=== PATIENT | female | born 1935 | race Caucasian/White ===

== ENCOUNTER 2025-03-27 09:38 | Outpatient (AMB) | payer MEDICARE, OTHER, SELFPAY ==
--- NOTE | 2025-03-27 09:43 | MHC.PC.OV ---
Vital Signs 03/27/25 09:50 Height 5 ft 3 in Weight 147 lb BMI 26.0 BP 112/70 Blood Pressure Location Rt brachial Position Sitting Respiration 18 Pulse 80 Pulse Source Pulse Oximeter Temp 97.6 F Temp Source Oral Pulse Oximetry (%) 99 Oxygen Delivery Method Room Air Intake Visit Reasons: New Patient visit ok per Dr. Barrientos Intake Note: Pt is here today for New patient visit. Allergies amoxicillin [AMOXICILLIN] Allergy (Unknown, Unverified 03/27/25 09:52) VOMITING DIARRHEA Sulfa (Sulfonamide Antibiotics) [SULFA (SULFONAMIDE ANTIBIOTICS)] Allergy (Unknown, Unverified 03/27/25 09:52) RASH Medication List - Last Reconciled 03/27/25 by Sejal Barrientos MD allopurinol 200 mg PO DAILY ammonium lactate 12% 1 appl topical BID lisinopril 10 mg PO DAILY metoprolol succinate ER 100 mg PO DAILY metronidazole 0.75% appl topical simvastatin 80 mg PO QPM Tobacco use date assessed: 03/27/25 Fall risk assessment: 1 Fall in past year Last assessed Fall Risk: 03/27/25 Dental Screening Dental Screen Date: 03/27/25 Did you have a dental visit in the last 12 months?: Yes Did you have a dental problem in the last 6 months where you did not have access to dental care?: No Was dental information given to patient?: Patient has dentist HPI New Patient visit ok per Dr. Barrientos HPI Details Patient presents for new patient visit. Past medical history includes hypertension hyperlipidemia. [place] [facility] [place] She lives in [place] [facility]. Patient reports having difficulty with the balance but has not been physically active. She uses walker or cane to ambulate. Patient denies any falls Patient denies any asymmetric weakness in her lower extremities. [facility] Medical History (Updated 03/27/25 @ 16:06 by Sejal Barrientos MD) HTN (hypertension) Hyperlipidemia Gout Surgical History (Updated 03/27/25 @ 09:56 by MEGA Grimm) No pertinent past surgical history Family History (Updated 03/27/25 @ 09:57 by MEGA Grimm) Father No problems noted. Mother No problems noted. Social History (Updated 03/27/25 @ 16:07 by Sejal Barrientos MD) Household Members Other:: lives in [facility], independent living, son and daughter, Housing: House Patient Tobacco Use Status: Former Tobacco user e-Cigarette/Vaping Use: Never Used service: No Current occupational status: retired Cognitive needs: No Hearing needs: No Vision needs: Yes Questionnaire PHQ-9 Over the last 2 weeks, how often have you been bothered by any of the following problems? 1. Little interest or pleasure in doing things: several days 2. Feeling down, depressed, or hopeless: not at all 3. Trouble falling or staying asleep, or sleeping too much: not at all 4. Feeling tired or having little energy: not at all 5. Poor appetite or overeating: not at all 6. Feeling bad about yourself - or that you are a failure or have let yourself or your family down: not at all 7. Trouble concentrating on things, such as reading the newspaper or watching television: not at all 8. Moving or speaking so slowly that other people could have noticed. Or the opposite - being so fidgety or restless that you have been moving around a lot more than usual: not at all 9. Thoughts that you would be better off or of hurting yourself in some way: not at all Total score: 1 Depression Screening Interpretation: Negative Depression Screening Done: Yes 60482 - PHQ-9 Billing: Yes Source: Developed by Drs. Edgardo Xie, Leela Tanner, Marlo Quintana and colleagues, with an educational jason from [employer]. Thrive Questionnaire Date Thrive assessed: 03/27/25 I am a: Patient What is your living situation today?: I have a steady place to live Within the past 12 months, did the food you bought not last and you didn't have the money to get more?: Never true Within the past 12 months, did you worry whether your food would run out before you got money to buy more?: Never true Do you have trouble paying for medicines?: No Do you have trouble getting transportation to medical appointments?: No Do you have trouble paying your heating and electricity bill?: No Do you have trouble taking care of your child, family member or friend?: No Do you have trouble with day-to-day activities such as bathing, preparing meals, shopping, managing finances, etc.?: No Are you currently unemployed and looking for a job?: No Are you interested in more education?: No Please select the resources that you would like help with: None Currently or been in a relationship where the following occur: No concerns reported THRIVE Score: 0 AUDIT C Alcohol Use Questionnaire (AUDIT-C) 1. How often do you have a drink containing alcohol?: 4 or more times a week 2. How many drinks containing alcohol do you have on a typical day when you are drinking?: 1 or 2 3. How often do you have six or more drinks on one occasion?: Never Total Score: 4 SANTOS-7 AMB Questionnaire SANTOS-7 Date SANTOS - 7 assessed: 03/27/25 Feeling nervous, anxious, or on edge: 0 = Not at all Not being able to stop or control worryin = Not at all Worrying too much about different things: 0 = Not at all Trouble relaxin = Not at all Being so restless that it is hard to sit still: 0 = Not at all Becoming easily annoyed or irritable: 0 = Not at all Feeling afraid as if something awful might happen: 0 = Not at all Total SANTOS-7 score (0-4 normal; 5-9 mild; 10-14 moderate; 15-21 severe): 0 Source: Developed by Drs. dEgardo Xie, Leela Tanner, Marlo Quintana and colleagues, with an educational jason from [employer]. SANTOS-7 Assessment Billing SANTOS-7 Assessment Tool: SANTOS-7 Assessment 71452 Review of Systems Const All systems reviewed & are unremarkable except as noted in HPI and below Reports no additional complaints Eyes Reports no additional complaints ENT Reports no additional complaints Card Reports no additional complaints Resp Reports no additional complaints GI Reports no additional complaints Reports no additional complaints Physical exam (Primary Care) Vital Signs: Last Vital Signs Temp 97.6 F 03/27/25 09:50 Pulse 80 03/27/25 09:50 Resp 18 03/27/25 09:50 BP 112/70 03/27/25 09:50 Pulse Ox 99 03/27/25 09:50 Oxygen Delivery Method Room Air 03/27/25 09:50 BMI result Body Mass Index 26.0 Tobacco/Smoking Status: Tobacco use Status Tobacco use date assessed 03/27/25 03/27/25 09:46 Patient Tobacco Use Status Former Tobacco user 03/27/25 10:17 e-Cigarette/Vaping Use Never Used 03/27/25 10:17 PHQ-9: PHQ-9 Score PHQ-9: Total score 1 03/27/25 10:20 Depression Screening Interpretation: Negative Thrive Assessment: Date of Thrive Assessment Date Thrive assessed 03/27/25 03/27/25 09:46 Currently or been in a relationship where the following occur: No concerns reported Const General: no acute distress HENMT Head: Yes normal to inspection Ears: hearing grossly normal bilaterally Face and sinus: Yes normal facial exam Throat: Yes posterior oropharynx normal Eyes General: appearance normal, both eyes and all related structures Neck Neck: Yes no lymphadenopathy and Yes supple Resp Effort & Inspection: normal respiratory effort Auscultation: clear to auscultation bilaterally Cardio Rhythm: regular rhythm Heart sounds: S1 normal heart sound present and S2 normal heart sound present GI Inspection: Yes normal to inspection Palpation (GI): Soft to palpation Percussion: Yes normal to percussion Auscultation: normal bowel sounds Neuro Other: lower Extremities strength 4/5 bilaterally Cranial nerves: Yes CN's II-XII intact bilaterally Gait exam (Neuro): Staggering gait present Motor exam (neuro): Pronator motor function not present Coordination: [id number]-nr-[id number] test normal Romberg Test: Negative Coding Level of Care Code New Pt Level 4 (15476) Diagnoses Gout M10.9 Hyperlipidemia E78.5 HTN (hypertension) I10 Lower extremity weakness R29.898 Poor balance R26.89 Additional Codes SANTOS-7 Assessment Billing - SANTOS-7 Assessment Tool: SANTOS-7 Assessment 39254 ([id number]) PHQ-9 - 87366 - PHQ-9 Billing: Yes ([id number]) Assessment & Plan Assessment & Plan (1) Gout: Code(s): M10.9 - Gout, unspecified Category: Medical Plan: Continue allopurinol check uric acid (2) Hyperlipidemia: Code(s): E78.5 - Hyperlipidemia, unspecified Category: Medical Plan: Continue statin (3) HTN (hypertension): Code(s): I10 - Essential (primary) hypertension Category: Medical Plan: Continue lisinopril and metoprolol. Patient will return for fasting blood work. (4) Lower extremity weakness: Code(s): R29.898 - Other symptoms and signs involving the musculoskeletal system Category: Medical Plan: Physical therapy was recommended but patient will start take part in gym activities in her community (5) Poor balance: Code(s): R26.89 - Other abnormalities of gait and mobility Category: Medical Plan: PT was recommended but patient will try classes to improve her balance, she will follow-up in 3 months Orders: Orders Complete Blood Count Auto Diff Today E53.8 - Deficiency of other specified B group vitamins, E55.9 - Vitamin D deficiency, unspecified, E78.5 - Hyperlipidemia, unspecified, I10 - Essential (primary) hypertension, M10.9 - Gout, unspecified Lipid Panel Today E53.8 - Deficiency of other specified B group vitamins, E55.9 - Vitamin D deficiency, unspecified, E78.5 - Hyperlipidemia, unspecified, I10 - Essential (primary) hypertension, M10.9 - Gout, unspecified Hemoglobin A1c Today E53.8 - Deficiency of other specified B group vitamins, E55.9 - Vitamin D deficiency, unspecified, E78.5 - Hyperlipidemia, unspecified, I10 - Essential (primary) hypertension, M10.9 - Gout, unspecified UA w Microscopic Today E53.8 - Deficiency of other specified B group vitamins, E55.9 - Vitamin D deficiency, unspecified, E78.5 - Hyperlipidemia, unspecified, I10 - Essential (primary) hypertension, M10.9 - Gout, unspecified TSH reflex Free T4 Today E53.8 - Deficiency of other specified B group vitamins, E55.9 - Vitamin D deficiency, unspecified, E78.5 - Hyperlipidemia, unspecified, I10 - Essential (primary) hypertension, M10.9 - Gout, unspecified Vitamin B12 and Folate Today E53.8 - Deficiency of other specified B group vitamins, E55.9 - Vitamin D deficiency, unspecified, E78.5 - Hyperlipidemia, unspecified, I10 - Essential (primary) hypertension, M10.9 - Gout, unspecified Comprehensive [place]. Panel Fast Today E53.8 - Deficiency of other specified B group vitamins, E55.9 - Vitamin D deficiency, unspecified, E78.5 - Hyperlipidemia, unspecified, I10 - Essential (primary) hypertension, M10.9 - Gout, unspecified Medications: New allopurinol 200 mg (2 x 100 mg) PO DAILY 90 tabs 3RF metoprolol succinate ER 100 mg PO DAILY 90 tabs 3RF lisinopril 10 mg PO DAILY 90 tabs 3RF simvastatin 80 mg PO QPM 90 tabs 3RF
[2025-03-27 09:50] VITALS: BP 112/70; PULSE 80; RESP 18; TEMP 36.4; O2SAT 99; BMI 26.0
--- OUTSIDE RECORDS SUMMARY | 2025-03-27 10:45 | XMS_ITS ---
Author Organization [facility] Address [address] [place] [address] Care Team Providers Care Notereader Name Role Phone Sejal Barrientos MD Primary Care Provider Claribel El [phone] Encounters Encounter Location Date Provider Diagnosis [facility] [address] [place] [address] 02/19/2025 Claribel Michael Plan Of Treatment Next Appt Details Provider Name:Claribel almeida, 06/16/2025 01:00:00 PM, [address] [place], [address], Progress Notes * Trinh YOU LDOB:1935 (89 yo F)Acc No.[id number]:02/19/2025 Progress Note Patient:? Trinh Guardado Provider:?Claribel Michael DPM :1935???Age:89 Y???Sex:Female D ate:02/19/2025 Address:[address], [place] Pcp:Sejal Barrientos MD Subjective: * Chief Complaints: * ??? * Medical History:? Objective: * Vitals:? Assessment: Plan: * Treatment: * Images: * The named appointment provid er may or may not be the originator of this progress note, and it is not deemed complete until electronically signed by the appointment provider. Sign off status: Pending * Provider:?Claribel Michael DPM Date:?0 02/19/2025 Generated for Miller moffett/Vitor/Beronica on:?03/27/2025 10:44 AM EDT
== END 2025-03-27 10:44 | disposition home or self-care (01) ==
LOC: HO.HMCC 09:38
PROVIDERS: Visit Provider Internal Medicine
DX: M10.9 Gout, unspecified (principal); E78.5 Hyperlipidemia, unspecified; I10 Essential (primary) hypertension; R29.898 Other symptoms and signs involving the musculoskeletal system; R26.89 Other abnormalities of gait and mobility

== ENCOUNTER → 2025-03-27 09:38 | Outpatient (BNVA) | payer MEDICARE, OTHER, SELFPAY | PROVIDERS: Visit Provider Internal Medicine | DX: M10.9 Gout, unspecified (principal); E78.5 Hyperlipidemia, unspecified; I10 Essential (primary) hypertension; R29.898 Other symptoms and signs involving the musculoskeletal system; R26.89 Other abnormalities of gait and mobility | CPT/HCPCS: 96127; 99202 ==

== ENCOUNTER 2025-04-03 07:52 | Outpatient (REF) | payer MEDICARE, OTHER, SELFPAY ==
--- OUTSIDE RECORDS SUMMARY | 2025-04-03 07:56 | XMS_ITS ---
Author Organization [facility] Address [address] [place] [address] Care Team Providers Care Health And Safety Tech Name Role Phone Sejal Barrientos MD Primary Care Provider Claribel El [phone] Encounters Encounter Location Date Provider Diagnosis [facility] [address] [place] [address] 02/19/2025 Claribel Michael Plan Of Treatment Next Appt Details Provider Name:Claribel almeida, 06/16/2025 01:00:00 PM, [address] [place], [address], Progress Notes * Trinh YOU LDOB:1935 (89 yo F)Acc No.[id number]:02/19/2025 Progress Note Patient:? Trinh Guardado Provider:?Claribel Michael DPM :1935???Age:89 Y???Sex:Female D ate:02/19/2025 Address:[address], [place] Pcp:Sejal Barrientos MD Subjective: * Chief Complaints: [...] DPM Date:?0 02/19/2025 Generated for Miller moffett/Vitor/Beronica on:?04/03/2025 07:56 AM EDT
[2025-04-03 10:04] LABS: MANUAL DIFF FLAG NO
[2025-04-03 10:10] LABS: Basophils Percent Auto 0.5 % (0-2); Eosinophils Absolute Auto 0.6 X10*3/uL (0.0-0.4); Eosinophils Percent Auto 7.5 % (0-4); Hematocrit 42.9 % (37.0-47.0); Hemoglobin 14.5 g/dl (12.0-16.0); Imm Gran Abs Auto 0.03 X10*3/uL (0.00-0.03); Imm Gran Pct Auto 0.4 % (0.0-0.4); Lymphocytes Percent Auto 26.4 % (20-40); Mean Corpuscular HGB Conc 33.8 g/dl (31.0-35.0); Mean Corpuscular Hemoglobin 34.8 pg (27.0-33.0); Mean Corpuscular Volume 102.9 fL (80.0-98.0); Mean Platelet Volume 9.6 fL (9.4-12.3); Monocytes Absolute Auto 0.6 X10*3/uL (0.1-1.2); Monocytes Percent Auto 7.5 % (2-11); Neutrophils Absolute Auto 4.3 x10*3/uL (2.0-8.3); Neutrophils Percent Auto 57.7 % (45-73); Platelet Count 155 X10*3/uL (160-400); Red Blood Count 4.17 X10*6/uL (4.20-5.50); Red Cell Distribution Width 12.8 % (11.0-16.0); White Blood Count 7.5 X10*3/uL (4.8-10.8)
[2025-04-03 10:22] LABS: Estimated Average Glucose 103 mg/dL; Hemoglobin A1c % 5.2 % (<6.0)
[2025-04-03 10:31] LABS: Anion Gap 12 (12-20)
[2025-04-03 10:41] LABS: Alanine Aminotransferase 37 U/L (0-31); Albumin Level 4.7 g/dL (3.5-5.0); Alkaline Phosphatase 61 U/L (39-117); Aspartate Amino Transferase 43 U/L (5-31); Bilirubin Total 2.1 mg/dL (0.0-1.0); Blood Urea Nitrogen 24 mg/dL (9-16); Calcium 9.8 mg/dL (8.4-10.2); Carbon Dioxide 25 mmol/L (22-29); Chloride 107 mmol/L (96-108); Cholesterol 151 mg/dL (<200); Estimated Glomerular Filt Rate 53; Glucose Fasting 114 mg/dL (60-99); HDL Cholesterol 66 mg/dL (>40); LDL Cholesterol Calculated 61 mg/dL (<100); Potassium 4.2 mmol/L (3.3-5.1); Sodium 140 mmol/L (135-145); Total Protein 7.2 g/dL (6.5-8.0); Triglycerides 120 mg/dL (<150)
[2025-04-03 10:45] LABS: TSH reflex Free T4 2.42 uIU/mL (0.32-4.0)
[2025-04-03 14:09] LABS: Folate 9.2 ng/mL (> or = 4.0); Vitamin B12 290 pg/mL (200-900)
== END 2025-04-03 07:53 | disposition home or self-care (01) ==
LOC: HO.HMGCLDS 07:52
PROVIDERS: PCP Internal Medicine; Visit Provider Internal Medicine
DX: H61.23 Impacted cerumen, bilateral (principal); M10.9 Gout, unspecified; E78.5 Hyperlipidemia, unspecified; I10 Essential (primary) hypertension; E55.9 Vitamin D deficiency, unspecified; E53.8 Deficiency of other specified B group vitamins
CPT/HCPCS: 36415; 80053; 80061; 82607; 82746; 83036; 84443; 85025; 99212

== ENCOUNTER 2025-04-03 08:11 | Outpatient (AMB) | payer MEDICARE, OTHER, SELFPAY ==
[2025-04-03 08:30] VITALS: BP 110/66; PULSE 93; TEMP 36.6; O2SAT 95; BMI 25.7
--- NOTE | 2025-04-03 08:30 | AM.OFFWIN_ITS ---
Intake Vital Signs 04/03/25 08:30 Height 5 ft 3 in Weight 145 lb 6 oz BMI 25.7 BP 110/66 Blood Pressure Location Rt brachial Position Sitting Pulse 93 Pulse Source Pulse Oximeter Temp 97.8 F Temp Source Oral Pulse Oximetry (%) 95 Oxygen Delivery Method Room Air Intake Visit Reasons: EP ear flush Intake Note: Pt presents to the office today for an ear irrigation. Pt states she saw Dr. Barrientos and was told to get her ears checked and possibly flushed. Patient Tobacco Use Status: Former Tobacco user Allergies amoxicillin [AMOXICILLIN] Allergy (Unknown, Unverified 04/03/25 08:34) VOMITING DIARRHEA Sulfa (Sulfonamide Antibiotics) [SULFA (SULFONAMIDE ANTIBIOTICS)] Allergy (Unknown, Unverified 04/03/25 08:34) RASH HPI HPI Comments History of Present Illness Details History of Present Illness - The patient is an 89-year-old female p resenting with blocked ears. She was sent in here by her PCP because something was wrong with her ears . - She reports no ear pain, dizziness, or hearing issues but does experience occasional itching in the ears. - The condition was first noted approxim ately two or three weeks ago by a physician. - She denies fever, chills, congestion, runny nose, SOLER, dizziness, or hearing loss. Physical Exam General: Cooperative, healthy appearing, comfortable, no acute distress and well developed Head: Normal to inspection Ears: Hearing grossly normal bilaterally. Cerumen impaction noted bilaterally. Nose: Normal External nose present Face and sinus: Normal facial exam. No TTP of the sinues bilaterally. Neck: Normal visual inspection and Yes full ROM. No lymphadenpathy noted. Respiratory: Normal respiratory effort and able to speak in complete sentences. Clear to auscultation bilaterally Cardiovascular: Regular rate and rhythm. Normal S1 and S2 Patient was informed and verbally consented to the use of an ambient scribe for clinic note documentation during this visit. [facility] Medical History HTN (hypertension) Hyperlipidemia Gout Surgical History No pertinent past surgical history Family History Father No problems noted. Mother No problems noted. Social History Household Members Other:: lives in [facility], independent living, son and daughter, Housing: House Patient Tobacco Use Status: Former Tobacco user e-Cigarette/Vaping Use: Never Used service: No Current occupational status: retired Cognitive needs: No Hearing needs: No Vision needs: Yes Review of Systems Const All systems reviewed & are unremarkable except as noted in HPI and below Physical Exam Vital Signs: Last Vital Signs Temp 97.8 F 04/03/25 08:30 Pulse 93 04/03/25 08:30 BP 110/66 04/03/25 08:30 Pulse Ox 95 04/03/25 08:30 Oxygen Delivery Method Room Air 04/03/25 08:30 BMI result Body Mass Index 25.7 Assessment & Plan Assessment & Plan (1) Impacted cerumen of both ears: Code(s): H61.23 - Impacted cerumen, bilateral Plan Most likely cerumen impaction Plan - Perform bilateral ear irrigation to remove cerumen impaction. - Avoid q-tips - Debrox drops to the ears - Follow up with PCP Medications: New carbamide peroxide 6.5% (Debrox) 5 drps otic (ears) DAILY 4 days 15 mL 0RF Coding Level of Care Code Est Pt Level 3 (83867) Diagnoses Impacted cerumen of both ears H61.23
== END 2025-04-03 09:28 | disposition home or self-care (01) ==
PROVIDERS: PCP Internal Medicine; Visit Provider Physician Assistant Medical
DX: H61.23 Impacted cerumen, bilateral (principal)

== ENCOUNTER 2025-04-04 08:00 | Outpatient (REF) | payer MEDICARE, OTHER, SELFPAY ==
--- OUTSIDE RECORDS SUMMARY | 2025-04-04 12:42 | XMS_ITS ---
Author Organization [facility] Address [address] [facility] [place] [address] Care Team Providers Care Research Staff Member Name Role Phone Sejal Barrientos MD Primary Care Provider Claribel El [phone] Encounters Encounter Location Date Provider Diagnosis [facility] [address] [place] [address] 02/19/2025 Claribel Michael Plan Of Treatment Next Appt Details Provider Name:Claribel almeida, 06/16/2025 01:00:00 PM, [address] [place], [address], Progress Notes * Trinh YOU LDOB:1935 (89 yo F)Acc No.[id number]:02/19/2025 Progress Note Patient:? Trinh Guardado Provider:?Claribel Michael DPM :1935???Age:89 Y???Sex:Female D ate:02/19/2025 Address:[address], [place] Pcp:Sejal Barrientos MD Subjective: * Chief Complaints: [...] DPM Date:?0 02/19/2025 Generated for Miller moffett/Vitor/Beronica on:?04/04/2025 12:42 PM EDT
[2025-04-04 13:22] LABS: Appearance Urine Clear; Color Urine Yellow; Glucose Urine UA Negative (Negative); Leukocyte Esterase Urine Trace (Negative); Nitrite Urine Negative (Negative); UMIC TRIGGER UA YES; Urine Blood Negative (Negative); Urine Ketones Negative (Negative); Urine Protein Negative (Neg-Trace)
[2025-04-04 13:27] LABS: Bacteria Urine None Seen (None Seen); Hyaline Casts Urine 0-2 /LPF (0-2); RBC Urine 0-2 /HPF (0-2); Squamous Epithelial Cell Urine 0-2 /HPF (0-2); WBC Urine 0-5 /HPF (0-5)
== END 2025-04-04 08:01 | disposition home or self-care (01) ==
LOC: HO.HMGCLNP 08:00
PROVIDERS: PCP Internal Medicine; Visit Provider Internal Medicine
DX: M10.9 Gout, unspecified (principal); E78.5 Hyperlipidemia, unspecified; I10 Essential (primary) hypertension; E55.9 Vitamin D deficiency, unspecified; E53.8 Deficiency of other specified B group vitamins
CPT/HCPCS: 81001

== ENCOUNTER 2025-06-30 09:52 | Outpatient (AMB) | payer MEDICARE, OTHER, SELFPAY ==
--- OUTSIDE RECORDS SUMMARY | 2025-02-19 07:30 | XMS_ITS ---
Author Organization [facility] Address [address] [place] [address] Care Team Providers Care Machine Load Clerk Name Role Phone Sejal Barrientos MD Primary Care Provider Claribel El [phone] Encounters Encounter Location Date Provider Diagnosis [facility] [address] [place] [address] 02/19/2025 Claribel Michael Plan Of Treatment Next Appt Details Provider Name:Claribel almeida, 08/21/2025 02:00:00 PM, [address] [place], [address], Progress Notes * Trinh YOU LDOB:1935 (89 yo F)Acc No.[id number]:02/19/2025 Progress Note Patient: Trinh CROSS Debby Provider: Wellington Michael DPM :1935 A ge:89 Y S ex:Female Date:02/19/2025 Address:[address], [place] Pcp:Sejal Barrientos MD Subjective: * Chief Complaints: * * Medical History: Objective: * Vitals: Assessment: Plan: * Treatment: * Images: * The named appointment provid er may or may not be the originator of this progress note, and it is not deemed complete until electronically signed by the appointment provider. Sign off status: Pending * Provider: Wellington Michael DPM Date: 0 02/19/2025 Generated for Miller moffett/Vitor/Beronica on: 0 06/30/2025 11:28 AM EDT
--- OUTSIDE RECORDS SUMMARY | 2025-03-27 11:00 | XMS_ITS ---
Author Organization [facility] Address [address] [facility] [place] [address] Care Team Providers Care Motorcycle Subassembly Repairer Name Role Phone Sejal Barrientos MD Primary Care Provider Claribel El [phone] REASON FOR VISIT for sooner apt Encounters Encounter Location Date Provider Diagnosis [address] [address] 03/27/2025 Claribel Michael Plan Of Treatment Next Appt Details Provider Name:Claribel almeida, 08/21/2025 02:00:00 PM, [address] [place], [address], Progress Notes * CLAUDIATrinh ONEILL LDOB:1935 (89 yo F)Acc No.[id number]:03/27/2025 Progress Note Patient: Trinh CROSS Provider: Wellington Michael DPM :1935 A ge:89 Y S ex:Female Date:03/27/2025 Address:[address], [place] Pcp:Sejal Barrientos MD Subjective: * Chief Complaints: * 1 . For sooner apt. * Medical History: Objective: * Vitals: Assessment: Plan: * Treatment: * Images: * The named appointment provid er may or may not be the originator of this progress note, and it is not deemed complete until electronically signed by the appointment provider. Sign off status: Pending * Provider: Wellington Michael DPM Date: 0 03/27/2025 Generated for Miller moffett/Vitor/Beronica on: 0 06/30/2025 11:29 AM EDT
--- OUTSIDE RECORDS SUMMARY | 2025-06-16 09:00 | XMS_ITS ---
Author Organization [facility] [place] Address [address] [facility] [place] [address] Care Team Providers Care Assistant Director Of Public Works Name Role Phone Sejal Barrientos MD Primary Care Provider Claribel El Unavailable [phone] Allergies Allergen (clinical drug ingredient) Drug/Non Drug Allergy documented on EMR Reaction Allergy Type Onset Date Status sulfamethoxazole / trimethoprim Bactrim Unknown Drug Allergy Active Medications Medication SIG (Take, Route, Frequency, Duration) Notes Start Date End Date Status Simvastatin 80 MG 1 tablet in the even ing Orally Once a day; Duration: 30 day(s) Active Ammonium Lactate 12 % 1 application Externally to affected areas of dry skin to feet except for between the toes Twice a day; Duration: 30 days Active metroNIDAZOLE 0.75 % 1 application Externally Twice a day Not-Takin g Colchicine 0.6 MG as directed Orally Not-Taking Metoprolol Tartrate 100 MG 1 tablet with food Orally Twice a day; Duration: 30 day(s) Not-Taking Lisinopril 10 MG 1 tablet Orally Once a day; Duration: 30 day(s) Active Metoprolol Succinate ER 100 MG Oral; Duration: 90 Days Acti ve Allopurinol Active metroNIDAZOLE 0.75 % APPLY A PEA SIZED AMOUNT OF CREAM TOPICALLY TO FACE ONCE TO TWICE DAILY External; Duration: 30 Days Active Encounters Encounter Location Date Provider Diagnosis [facility] [place] [address] [place] [address] 06/16/2025 Claribel Michael Plan Of Treatment Next Appt Details Provider Name:Claribel almeida, 08/21/2025 02:00:00 PM, [address] [place], [address], Progress Notes * Trinh YOU LDOB:1935 (89 yo F)Acc No.[id number]:06/16/2025 Progress Note Patient: Trinh CROSS Provider: Wellington Michael DPM :1935 A ge:89 Y S ex:Female Date:06/16/2025 Address:[address] [place], [place] [id number] Pcp:Sejal Barrientos MD Subjective: * Chief Complaints: * * Medical History: A rthritis, Back,Hip,and Knee pain, Diabetic, Gout, Measles, Chicken pox. * Medications: T aking Metoprolol Succinate ER 100 MG Tablet Extended Release 24 Hour Oral , Taking metroNIDAZOLE 0.75 % Cream APPLY A PEA SIZED AMOUNT OF CREAM TOPICALLY TO FACE ONCE TO TWICE DAILY External , Taking Allopurinol , Taking Lisinopril 10 MG Tablet 1 tablet Orally Once a day , Taking Simvastatin 80 MG Tablet 1 tablet in the evening Orally Once a day , Taking Ammonium Lactate 12 % Cream 1 application Externally to affected areas of dry skin to feet except for between the toes Twice a day , Not-Taking/PRN Colchicine 0.6 MG Tablet as directed Orally , Not-Taking/PRN metroNIDAZOLE 0.75 % Cream 1 application Externally Twice a day , Not-Taking/PRN Metoprolol Tartrate 100 MG Tablet 1 tablet with food Orally Twice a day * Allergies: B actrim. Objective: * Vitals: Assessment: Plan: * Treatment: * Images: * The named appointment provid er may or may not be the originator of this progress note, and it is not deemed complete until electronically signed by the appointment provider. Sign off status: Pending * Provider: Wellington Michael DPM Date: 06/16/2025 Generated for Miller moffett/Vitor/Huseyinitting on: 06/30/2025 11:29 AM EDT
[2025-06-30 10:02] VITALS: BP 126/74; PULSE 81; RESP 18; TEMP 36.5; O2SAT 96; BMI 25.9
--- NOTE | 2025-06-30 10:02 | A.OFFPC_ITS ---
Vital Signs 06/30/25 10:02 Height 5 ft 3 in Weight 146 lb BMI 25.9 BP 126/74 Blood Pressure Location Rt brachial Position Sitting Respiration 18 Pulse 81 Pulse Source Pulse Oximeter Temp 97.7 F Temp Source Oral Pulse Oximetry (%) 96 Oxygen Delivery Method Room Air Intake Visit Reasons: 3m follow up Intake Note: Pt is here today for 3 months follow up visit. Allergies amoxicillin (AMOXICILLIN) Allergy (Unknown, Unverified 06/30/25 10:07) VOMITING DIARRHEA Sulfa (Sulfonamide Antibiotics) (SULFA (SULFONAMIDE ANTIBIOTICS)) Allergy (Unknown, Unverified 06/30/25 10:07) RASH Medication List - Last Reconciled 06/30/25 by Sejal Barrientos MD allopurinol 200 mg (2 x 100 mg) PO DAILY ammonium lactate 12% 1 appl topical BID carbamide peroxide 6.5% (Debrox) 5 drps otic (ears) DAILY 4 days lisinopril 10 mg PO DAILY metoprolol succinate ER 100 mg PO DAILY metronidazole 0.75% appl topical simvastatin 80 mg PO QPM Tobacco use date assessed: 06/30/25 Fall risk assessment: 1 Fall in past year Last assessed Fall Risk: 06/30/25 Dental Screening Dental Screen Date: 03/27/25 HPI 3m follow up HPI Details Patient presents for the follow-up on hypertension and hyperlipidemia stable on current medications, COUNT INCLUDES THE [facility] Medical History HTN (hypertension) Hyperlipidemia Gout Surgical History No pertinent past surgical history Family History Father No problems noted. Mother No problems noted. Social History Household Members Other:: lives in [facility], independent living, son and daughter, Housing: House Patient Tobacco Use Status: Former Tobacco user e-Cigarette/Vaping Use: Never Used service: No Current occupational status: retired Cognitive needs: No Hearing needs: No Vision needs: Yes Questionnaire Thrive Questionnaire Date Thrive assessed: 03/27/25 I am a: Patient What is your living situation today?: I have a steady place to live Within the past 12 months, did the food you bought not last and you didn't have the money to get more?: Never true Within the past 12 months, did you worry whether your food would run out before you got money to buy more?: Never true Do you have trouble paying for medicines?: No Do you have trouble getting transportation to medical appointments?: No Do you have trouble paying your heating and electricity bill?: No Do you have trouble taking care of your child, family member or friend?: No Do you have trouble with day-to-day activities such as bathing, preparing meals, shopping, managing finances, etc.?: No Are you currently unemployed and looking for a job?: No Are you interested in more education?: No Please select the resources that you would like help with: None Currently or been in a relationship where the following occur: No concerns reported THRIVE Score: 0 SANTOS-7 AMB Questionnaire SANTOS-7 Date SANTOS - 7 assessed: 03/27/25 Source: Developed by Drs. Edgardo Xie, Leela Tanner, Marlo Quintana and colleagues, with an educational jason from [employer]. Review of Systems Const All systems reviewed & are unremarkable except as noted in HPI and below Eyes Reports no additional complaints Card Reports no additional complaints Resp Reports no additional complaints GI Reports no additional complaints Reports no additional complaints Physical exam (Primary Care) Vital Signs: Last Vital Signs Temp 97.7 F 06/30/25 10:02 Pulse 81 06/30/25 10:02 Resp 18 06/30/25 10:02 BP 126/74 06/30/25 10:02 Pulse Ox 96 06/30/25 10:02 Oxygen Delivery Method Room Air 06/30/25 10:02 BMI result Body Mass Index 25.9 Tobacco/Smoking Status: Tobacco use Status Tobacco use date assessed 06/30/25 06/30/25 10:08 Patient Tobacco Use Status Former Tobacco user 06/30/25 10:04 e-Cigarette/Vaping Use Never Used 06/30/25 10:04 Thrive Assessment: Date of Thrive Assessment Date Thrive assessed 03/27/25 06/30/25 10:04 Currently or been in a relationship where the following occur: No concerns reported Const General: no acute distress HENMT Head: Yes normal to inspection Neck Neck: Yes supple Resp Effort & Inspection: normal respiratory effort Auscultation: clear to auscultation bilaterally Cardio Rhythm: regular rhythm Heart sounds: S1 normal heart sound present and S2 normal heart sound present GI Inspection: Yes normal to inspection Palpation (GI): Soft to palpation Coding Level of Care Code Est Pt Level 4 (48129) Diagnoses HTN (hypertension) I10 Hyperlipidemia E78.5 Vitamin D deficiency E55.9 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 Assessment & Plan Assessment & Plan (1) HTN (hypertension): Code(s): I10 - Essential (primary) hypertension Category: Medical Plan: Continue current medications (2) Hyperlipidemia: Code(s): E78.5 - Hyperlipidemia, unspecified Category: Medical Plan: Continue statin (3) Vitamin D deficiency: Code(s): E55.9 - Vitamin D deficiency, unspecified Category: Medical Plan: Continue vitamin-D (4) Vitamin B 12 deficiency: Code(s): E53.8 - Deficiency of other specified B group vitamins Category: Medical Plan: Continue vitamin B12 and check the level, increasing physical activity left lower extremities strength discussed with the patient. She lives in [facility] and is interested in participating in exercise classes, follow-up in 6 months with a fasting labs before Orders: Orders Complete Blood Count Auto Diff 6 Months E53.8 - Deficiency of other specified B group vitamins, E55.9 - Vitamin D deficiency, unspecified, E78.5 - Hyperlipidemia, unspecified, I10 - Essential (primary) hypertension Comprehensive [place]. Panel Fast 6 Months E53.8 - Deficiency of other specified B group vitamins, E55.9 - Vitamin D deficiency, unspecified, E78.5 - Hyperlipidem ia, unspecified, I10 - Essential (primary) hypertension Vitamin D 25-OH Total 6 Months E53.8 - Deficiency of other specified B group vitamins, E55.9 - Vitamin D deficiency, unspecified, E78.5 - Hyperlipidemia, unspecified, I10 - Essential (primary) hypertension Vitamin B12 and Folate 6 Months E53.8 - Deficiency of other specified B group vitamins, E55.9 - Vitamin D deficiency, unspecified, E78.5 - Hyperlipidemia, unspecified, I10 - Essential (primary) hypertension Methylmalonic Acid 6 Months E53.8 - Deficiency of other specified B group vitamins, E55.9 - Vitamin D deficiency, unspecified, E78.5 - Hyperlipidemia, unspecified, I10 - Essential (primary) hypertension
--- OUTSIDE RECORDS SUMMARY | 2025-06-30 11:29 | XMS_ITS | Patient Health Record ---
Author Organization [facility] Viviane Bellamy Address [address] [facility] [place] [address] Care Team Providers Care Alum Operator Name Role Phone Sejal Barrientos MD Primary Care Provider Claribel El Unavailable [phone] Allergies Allergen (clinical drug ingredient) Drug/Non Drug Allergy documented on EMR Reaction Allergy Type Onset Date Status sulfamethoxazole / trimethoprim Bactrim Unknown Drug Allergy Active Reason For Referral No Information Medications Medication SIG (Take, Route, Frequency, Duration) Notes Start Date End Date Status Simvastatin 80 MG 1 tablet in the even ing Orally Once a day; Duration: 30 day(s) Active Lisinopril 10 MG 1 tablet Orally Once [...] Twice a day; Duration: 30 day(s) Not-Taking Metoprolol Succinate ER 100 MG Oral; Duration: 90 Days Acti ve Allopurinol Active metroNIDAZOLE 0.75 % APPLY A PEA SIZED AMOUNT OF CREAM TOPICALLY TO FACE ONCE TO TWICE DAILY External; Duration: 30 Days Active Social History Tobacco Use: Social History Observation Description Date Details (start date - stop date) Former Smoker NA - NA Tobacco use other than smoking: Question Answer Notes Are you an other tobacco user? No Tobacco Control (Standard) Question Answer Notes Tobacco use: Former smoker Additional Findings: Tobacco non-user Current no nsmoker AUDIT-C (Standard) Question Answer Notes Did you have a drink contain ing alcohol in the past year? Yes How often did you have six o r more drinks on one occasion in the past year? Less than monthly (1 point) How many drinks did you have on a typical day when you were drinking in the past year? 1 or 2 drinks (0 point) How often did you have a dri nk containing alcohol in the past year? Monthly or less (1 point) Points 2 Interpretation Negative Problems Problem Type SNOMED Code ICD Code Onset Dates Problem Status W/U Status Risk Notes Problem Bilateral atherosclerosis of arteries of lower limbs (disorder) ([id number] ) Atherosclerosis of [place] artery of both lower extremities, with unspecified presence of clinical manifestation (I70.203) Active confirmed Q7(A), Q8(2B), Q9(1B,2 C) Vital Signs Blood pressure diastolic 70 mm Hg 02/12/2025 Height 5ft 2in in 02/12/2025 Blood pressure systolic 155 mm Hg 02/12/2025 Weight 150 lbs 02/12/2025 BMI 27.43 kg/m2 02/12/2025 Procedures Procedure Date Ordered Date Performed Result Body Sit e 98212-RYMUPHX NAIL, 6 OR MORE 10/21/2024 N/A 24326-[id number] SKIN LESIONS, OVER 4 10/21/2024 N/A [id number] NAIL, 6 OR MORE 02/12/2025 N/A 09882-PBBQ SKIN LESIONS, OVER 4 02/12/2025 N/A Encounters Encounter Location Date Provider Diagnosis [address] [address] 10/21/2024 Claribel Michael Atherosclerosis of [place] artery of both lower extremities, with unspecified presence of clinical manifestation I70.203 ; Tinea unguium B35.1 ; Pain in right toe(s) M79.674 ; Pain in left toe(s) M79.675 ; Other hammer toe(s) (acquired), right foot M20.41 ; Arthritis of joint of lesser toe, right M19.071 ; Other hammer toe(s) (acquired), left foot M20.42 ; Arthritis of joint of lesser toe, left M19.072 and Xerosis of skin L85.3 [facility] [place] [address] 02/12/2025 Claribel Michael Atherosclerosis of [place] artery of both lower extremities, with unspecified presence of clinical manifestation I70.203 ; Tinea unguium B35.1 ; Pain in right toe(s) M79.674 and Pain in left toe(s) M79.[address] [address] 09/02/2024 Claribel Michael [address] [address] 12/31/2024 Claribel Michael Xerosis of skin L85.[address] [address] 06/04/2025 Claribel Michael Assessments Encounter Date Diagnosis (ICD Code) Assessment Notes Treatment Notes Treatment Clinical Notes Section Notes 10/21/2024 Tinea unguium (ICD-10 - B35.1) 10/21/2024 Atherosclerosis of [place] artery of both lower extremities, with unspecified presence of clinical manifestation (ICD-10 - I70.203) Q7(A), Q8(2B), Q9(1B,2C) 12/31/2024 Xerosis of skin (ICD-10 - L85.3) 02/12/2025 Atherosclerosis of [place] artery of both lower extremities, with unspecified presence of clinical manifestation (ICD-10 - I70.203) Q7(A), Q8(2B), Q9(1B,2C) 02/12/2025 Tinea unguium (ICD-10 - B35.1) 10/21/2024 Pain in right toe(s) (ICD-10 - M79.674) 10/21/2024 Pain in left toe(s) (ICD-10 - M79.675) 02/12/2025 Pain in right toe(s) (ICD-10 - M79.674) 02/12/2025 Pain in left toe(s) (ICD-10 - M79.675) 10/21/2024 Other hammer toe(s) (acquired), right foot (ICD-10 - M20.41) 10/21/2024 Arthritis of joint of lesser toe, right (ICD-10 - M19.071) 10/21/2024 Other hammer toe(s) (acquired), left foot (ICD-10 - M20.42) 10/21/2024 Arthritis of joint of lesser toe, left (ICD-10 - M19.072) 10/21/2024 Xerosis of skin (ICD-10 - L85.3) Plan Of Treatment Pending Test Test Name Order Date [id number] NAIL, 6 OR MORE 10/21/2024 [id number] NAIL, 6 OR MORE 02/12/2025 71629-WUNV SKIN LESIONS, OVER 4 02/13/20 22867-EKKK SKIN LESIONS, OVER 4 10/21/20 24 Next Appt Details Provider Name:Claribel Davis juan pablo, 08/21/2025 02:00:00 PM, [address] [place], [address], Insurance Providers Payer Name Payer Address Payer Phone Subscriber Number Group Number Insured Name Patient Relationship to Insured Coverage Start Date Coverage End Date Medicare National [employer] [address] [facility] [place] [address] [id number] Trinh Bowles Self - [facility] the [facility] [address] [place] [phone] [id number] Edler Trinh Self - patient is the insured Medical (General) History Medical History History ICD Code Arthritis Back,Hip,and Knee pain Diabetic Gout Measles Chicken pox
== END 2025-06-30 11:02 | disposition home or self-care (01) ==
LOC: HO.HMCC 09:53
PROVIDERS: Visit Provider Internal Medicine
DX: I10 Essential (primary) hypertension (principal); E78.5 Hyperlipidemia, unspecified; E55.9 Vitamin D deficiency, unspecified; E53.8 Deficiency of other specified B group vitamins

== ENCOUNTER → 2025-06-30 09:52 | Outpatient (BNVA) | payer MEDICARE, OTHER, SELFPAY | PROVIDERS: Visit Provider Internal Medicine | DX: I10 Essential (primary) hypertension (principal); E78.5 Hyperlipidemia, unspecified; E55.9 Vitamin D deficiency, unspecified; E53.8 Deficiency of other specified B group vitamins; Z79.899 Other long term (current) drug therapy | CPT/HCPCS: 99212 ==